=== PATIENT | male | born 1980 | race Caucasian/White ===

== ENCOUNTER → 2024-05-17 | Outpatient (CLI) | payer SELFPAY ==
[2024-05-18 12:40] LABS: ALBUMIN 4.4 g/dL (3.5-5.0)
[2024-05-18 12:43] LABS: TOTAL PROTEIN 7.5 g/dL (6.4-8.3)
[2024-05-18 12:45] LABS: TOTAL BILIRUBIN 1.1 mg/dL (0.2-1.2)
[2024-05-18 12:48] LABS: DIRECT BILIRUBIN 0.4 mg/dL (0.0-0.5)
== END ==
LOC: LAB 08:34
PROVIDERS: Internal Medicine Endocrinology, Diabetes & Metabolism
DX: Z12.5 Encounter for screening for malignant neoplasm of prostate (principal); E89.0 Postprocedural hypothyroidism; E29.1 Testicular hypofunction

== ENCOUNTER → 2024-05-25 | Outpatient (CLI) | payer SELFPAY | LOC: LAB 07:46 | DX: Z12.5 Encounter for screening for malignant neoplasm of prostate (principal); E89.0 Postprocedural hypothyroidism; E29.1 Testicular hypofunction ==

== ENCOUNTER → 2024-10-28 | Outpatient (CLI) | payer SELFPAY ==
[2024-10-28 08:14] LABS: ALBUMIN 4.2 g/dL (3.5-5.0); BASO # 0.09 K/mm3 (0.02-0.10); EOS # 0.22 K/mm3 (0.04-0.40); EOS % 4.2 % (0.0-4.0); HEMATOCRIT 43.5 % (42.0-52.0); HEMOGLOBIN 14.2 g/dL (13.5-18.0); LYMPH# 1.82 K/mm3 (1.50-4.00); MEAN CELL VOLUME 87 fl (78-100); MEAN CORPUSCULAR HEMOGLOBIN 28 pg (27-31); MEAN CORPUSCULAR HGB CONC 33 g/dL (33-37); MEAN PLATELET VOLUME 9.3 fl (7.4-10.4); MONO # 0.33 K/mm3 (0.20-0.80); NEU # 2.81 K/mm3 (1.40-6.50); PLATELET COUNT 279 K/mm3 (130-400); RED BLOOD COUNT 5.01 M/mm3 (4.20-5.60); RED CELL DISTRIBUTION WIDTH 12.9 % (11.5-14.5); WHITE BLOOD COUNT 5.3 K/mm3 (4.8-10.8)
[2024-10-28 08:16] LABS: CALCIUM 9.7 mg/dL (8.3-10.5)
== END ==
LOC: LAB 07:42
PROVIDERS: Internal Medicine Endocrinology, Diabetes & Metabolism
DX: Z12.5 Encounter for screening for malignant neoplasm of prostate (principal); E89.0 Postprocedural hypothyroidism; E29.1 Testicular hypofunction; E05.00 Thyrotoxicosis with diffuse goiter without thyrotoxic crisis or storm